=== PATIENT | female | born 1985 | race Two or more races ===

== ENCOUNTER 2021-05-22 14:55 | Outpatient (CLI) | payer OTHER | END 2021-05-22 15:15 | disposition home or self-care (01) | LOC: PPH VACUNA 14:55 | PROVIDERS: ATTEND Emergency Medicine Pediatric Emergency Medicine | DX: Z23 Encounter for immunization (principal) ==

== ENCOUNTER 2022-03-03 12:41 | Emergency (ER) | payer OTHER ==
[~2022-03-03] VITALS: Ht 160 cm; Wt 133.4 kg
[2022-03-03] MEDS ORDERED: COZAAR100 MG PO (13:14)
[2022-03-03] MEDS ORDERED: INVOKANA100 MG PO (13:15)
== END 2022-03-03 17:57 | disposition home or self-care (01) ==
LOC: ER 12:41
DX: N39.0 Urinary tract infection, site not specified (principal); I10 Essential (primary) hypertension; E11.9 Type 2 diabetes mellitus without complications; M25.552 Pain in left hip; Z88.6 Allergy status to analgesic agent; K57.30 Diverticulosis of large intestine without perforation or abscess without bleeding